=== PATIENT | female | born 1975 | race Caucasian/White ===

== ENCOUNTER 2017-12-24 21:19 | Observation (INO) | payer OTHER ==
[~2017-12-24] VITALS: Ht 175.3 cm; Wt 119.3 kg
[~2017-12-24 21:19] MED LIST: ACETAMINOPHEN-1 EAC1 PO; AMITRIPTYLINE H25 M2 PO; BELSOMRA20 MG PO; BRINTELLIX20 MG PO; BUSPIRONE HCL5 MG PO; CIPRO500 MG PO; CITRATE OF MAG296 ML PO; CLONAZEPAM 1 MG1 M1 PO; COLACE100 MG PO; FLAGYL 250 MG250 MG PO; GAVISCON EXTRA355 ML PO; HYDROCODONE-AP1 EAC6 PO; IBUPROFEN 800800 M1 PO; LATUDA80 MG PO; LUNESTA3 MG PO; METOPROLOL TART25 MG PO; NAPROXEN375 MG PO; NORCO 5-325 TA1 EAC1 PO; NORCO 5-325 TA1 EACH PO; ONDANSETRON HCL4 M2 PO; PREDNISONE 20 M20 M1 PO; PRILOSEC40 MG PO; PROVIGIL 200 M200 M1 PO; TESSALON PERLE100 MG PO; TOPROL XL25 MG PO; TRAZODONE HCL100 MG PO; VALIUM5 MG PO; XANAX 0.25 MG0.25 MG PO; ZOFRAN ODT4 MG PO; ZOFRAN4 MG PO
[2017-12-24 21:21] VITALS: BP 141/95
[2017-12-24 21:46] LABS: ABSOLUTE BASOPHILS 0.1 thou/uL (0.0-0.2); ABSOLUTE EOSINOPHILS 0.2 thou/uL (0.0-0.7); ABSOLUTE LYMPHOCYTES 2.6 thou/uL (0.8-5.3); ABSOLUTE MONOCYTES 0.9 thou/uL (0.0-1.2); ABSOLUTE NEUTROPHILS 4.9 thou/uL (1.6-8.1); BASOPHILS 0.7 %; EOSINOPHILS 2.5 %; HEMATOCRIT 39.9 % (37.0-47.0); HEMOGLOBIN 13.8 gm/dL (12.0-15.0); LYMPHOCYTES 29.8 %; MCH 34.5 pg (26.0-34.0); MCHC 34.7 g/dL (28.0-37.0); MCV 99.4 fL (80.0-100.0); MONOCYTES 9.9 %; MPV 7.9 fl. (7.2-11.1); NUCLEATED RBCS 0 /100WBC; PLATELET COUNT* 406 thou/uL (150-400); POLYS 57.1 %; RBC 4.01 mil/uL (4.20-5.00); RDW-CV 13.2 % (10.5-14.5); WBC 8.6 thou/uL (4.0-11.0)
[2017-12-24 22:01] LABS: APTT 24.1 Seconds (25.0-31.3); INR 1.1; PROTIME 10.5 Seconds (9.20-11.50)
[2017-12-24 22:39] LABS: POTASSIUM 3.8 mmol/L (3.5-5.1)
[2017-12-24 22:40] LABS: CREATININE 0.9 mg/dL (0.6-1.3)
[2017-12-24 22:41] LABS: CALCIUM 8.1 mg/dL (8.5-10.1); TOTAL BILIRUBIN 0.3 mg/dL (<0.1-1.0)
[2017-12-24 22:42] LABS: ALBUMIN 3.3 g/dL (3.4-5.0); TOTAL PROTEIN 6.3 g/dL (6.4-8.2)
--- NOTE | 2017-12-24 22:45 | NUR ---
CODE STROKE DISCONTINUED PER DR MCCONNELL
[2017-12-24 22:58] LABS: URINE BILIRUBIN NEGATIVE (Negative); URINE BLOOD NEGATIVE (Negative); URINE CLARITY CLEAR; URINE COLOR YELLOW; URINE GLUCOSE-RANDOM NEGATIVE (Negative); URINE KETONES NEGATIVE (Negative); URINE LEUKOCYTES-REFLEX NEGATIVE (Negative); URINE NITRITE-REFLEX NEGATIVE (Negative); URINE PROTEIN NEGATIVE (Negative); URINE SPECIFIC GRAVITY <= 1.005 (1.005-1.030); URINE UROBILINOGEN 0.2 E.U./dl (0.2-1.0)
[2017-12-24 23:07] LABS: AMP/METHAMP Negative (Negative); BARBITURATES Negative (Negative); BENZODIAZEPINES Negative (Negative); COCAINE Negative (Negative); METHADONE Negative (Negative); OPIATES Negative (Negative); PCP Negative (Negative); THC Negative (Negative)
[2017-12-25] VITALS (7 sets, daily range): BP systolic 102–133; BP diastolic 57–88
[2017-12-25] MEDS ORDERED: CLONAZEPAM 1 MG1 M1 PO (01:26)
[2017-12-25] MEDS ORDERED: NEURONTIN 300300 M1 PO (01:38)
--- NOTE | 2017-12-25 08:22 | NUR ---
PATIENT TO UNIT FROM ER AT 0110, ADMISSION COMPLETED CHARTED. PATIENT ALERT/ORIENTED X4, SITTING UP IN BED. PLACED ON TELE, SR. ON ROOM AIR, NO SOB NOTED, SATS 97%, O2 PRN FOR CHEST PAIN. SL INTACT TO RIGHT WRIST AND RIGHT AC, FLUSHES WELL. UP WITH ASSIST. DENIES NEEDS. STATES HAVING PAIN TO CHEST. EKG DONE, NITRO X1 GIVEN WITH NO RELIEF NOTED. DR. MEJIA NOTIFIED, ORDERS RECEIVED AND NOTED. [facility] CHARTED. SWALLOW SCREEN COMPLETED. HS SNACK GIVEN. SCD'S PLACED ON. NPO AFTER MIDNIGHT. BED ALARM ON. FALL PRECAUTIONS IN PLACE. HOURLY ROUNDING OBSERVED. CALL LIGHT WITHIN REACH, ENCOURAGED TO CALL FOR NEEDS.
--- NOTE | 2017-12-25 10:40 | NUR ---
assumed pt care at 0730, full assesment done as charted. pt a/o x4, c/o chest pressure at 3/10. VSS, sr on the monitor. Consults for neuro and cardiology placed, pt able to eat breakfast. up ad gina in room. fall precatuions in place. call light used approprialty. will continue with plan of care
--- NOTE | 2017-12-25 11:03 | EKG ---
[place] [address] ELECTROCARDIOGRAM REPORT Name: TATA MESSER Room: [address] M.R.#: [id number] Admission: 12/24/17 Attend Phys: Rey Soto MD Discharge: Date of : 75 Report #: [id number] THIS REPORT FOR: //name// [facility] ED Test Date: 2017-12-24 Test Time: 22:19:40 Pat Name: TATA MESSER Department: Room: [facility] Gender: F Implementation Project Coordinator: PHU Cross : 1975 Requested By: Jazlyn Rossi Order Number: [id number] MD: Praful Lai Measurements Intervals [place] Rate: 88 P: 68 KS: 154 QRS: 40 QRSD: 93 T: 26 QT: 396 QTc: 480 Interpretive Statements Sinus rhythm nonspecific st changes Probable left atrial enlargement Low voltage, precordial leads Compared to ECG 10/02/2017 16:25:08 no change Electronically Signed On 12-25-2017 11:02:54 SODA ROOM OPERATOR by Praful Lai [email or web address] <ELECTRONICALLY SIGNED> By: Praful Lai MD, [facility] 12/25/17 1102 2219 2219 Praful Lai MD, [facility] /EPI
--- NOTE | 2017-12-25 11:03 | EKG ---
[place] [address] ELECTROCARDIOGRAM REPORT Name: TATA MESSER Room: [address] M.R.#: [id number] Admission: 12/24/17 Attend Phys: Rey Soto MD Discharge: Date of : 75 Report #: [id number] THIS REPORT FOR: //name// [facility] ED Test Date: 2017-12-24 Test Time: 23:21:54 Pat Name: TATA MESSER Department: Room: [facility] Gender: F Machine Guide Base Winder: PHU Cross : 1975 Requested By: Jazlyn Rossi Order Number: [id number] MD: Praful Lai Measurements Intervals [place] Rate: 89 P: 56 GA: 157 QRS: 27 QRSD: 85 T: 15 QT: 373 QTc: 454 Interpretive Statements Sinus rhythm Probable left atrial enlargement Consider anterior infarct Electronically Signed On 12-25-2017 11:03:41 PAYROLL OFFICER by Praful Lai [email or web address] <ELECTRONICALLY SIGNED> By: Praful Lai MD, [facility] 12/25/17 1103 2321 2321 Praful Lai MD, [facility] /EPI
--- NOTE | 2017-12-25 11:05 | EKG ---
[place] [address] ELECTROCARDIOGRAM REPORT Name: TATA MESSER Room: [address] M.R.#: [id number] Admission: 12/24/17 Attend Phys: Rey Soto MD Discharge: Date of : 75 Report #: [id number] THIS REPORT FOR: //name// [facility] Test Date: 2017-12-25 Test Time: 02:10:21 Pat Name: TATA MESSER Department: Room: [address] Gender: F Wheat Farmer: FOUZIA : 1975 Requested By: Rey Soto Order Number: [id number] MD: Praful Lai Measurements Intervals [place] Rate: 91 P: 60 MA: 150 QRS: 40 QRSD: 91 T: 34 QT: 380 QTc: 468 Interpretive Statements Sinus rhythm Low voltage, precordial leads Borderline T abnormalities, anterior leads Electronically Signed On 12-25-2017 11:04:50 VALUE ENGINEER by Praful Lai [email or web address] <ELECTRONICALLY SIGNED> By: Praful Lai MD, [facility] 12/25/17 1104 0210 0210 Praful Lai MD, [facility] /EPI
[2017-12-25] MEDS ORDERED: LINZESS72 MCG PO (12:57)
--- NOTE | 2017-12-25 23:00 | NUR ---
ASSESSMENT AND VITALS COMPLETED CHARTED, VSS. CHICKEN STUFFER IN PLACE TRACING SR. PATIENT A&OX4, HOWEVER, HAS EPISODES OF CONFUSION. PATIENT EASILY REORIENTED. PATIENT ON 2L O2 NC PRN FOR CHEST PAIN. O2 SATS 97%, NO SIGNS OF DISTRESS. PAIN RELIEVED WITH PRN MEDICATION, REFER TO EMAR. FALL PRECAUTIONS IN PLACE. CALL LIGHT WITHIN REACH.
[2017-12-26] VITALS: BP 109/80
[2017-12-26 02:02] LABS: POC CA IONIZED 4.7 mg/dL (4.5-5.3); POC CREATININE 0.9 mg/dL (0.6-1.3); POC HEMOGLOBIN 13.9 g/dL (12.0-17.0); POC POTASSIUM 4.6 mmol/L (3.5-4.9)
[2017-12-26 04:27] VITALS: BP 121/73
--- NOTE | 2017-12-26 04:52 | NUR ---
PATIENT HAS C/O PAIN THAT HAS MOVED TO HER RIGHT SHOULDER/CHEST. STATES THAT SHE FEELS "LIKE SHE HAS A PE." LABS REVIEWED AND ELEVATED D-DIMER NOTED ON ADMISSION WITH NO CTA. DR. HASKINS NOTIFIED. NO NEW ORDERS RECEIVED AT THIS TIME. PATIENT AGREES TO TRY A HEATING PAD FOR PAIN RELIEF. HOURLY ROUNDING OBSERVED. CALL LIGHT WITHIN REACH
[2017-12-26 08:00] VITALS: BP 148/88
[2017-12-26 11:08] LABS: GLYCOHEMOGLOBIN (HGB A1C) 5.3 % (4.8-5.6)
[2017-12-26 11:59] VITALS: BP 124/85
--- NOTE | 2017-12-26 14:14 | NUR ---
ASSUMED PT CARE AT 0730, FULL ASSESMENT DONE CHARTED. PT A/O X4, IS DROWSY AT TIMES. PT C/O "CHEST WALL PAIN" THAT DOES NOT RADIATE AND "HURTS WHEN I BREATH". PTS VSS, SR/BBB, UP AD JUAN JOSE, REQUESTS PAIN MEDS FREQUENTLY. ASKING IF SHE CAN HAVE A CT SCAN TO CHECK FOR PE'S, DR MUNOZ ORDERED TEST FOR PT AND IF NO PE PT CAN DC TODAY. PT AWARE OF THE PLAN AND OK WITH IT. WILL CONTINUE WITH PLAN OF CARE
[2017-12-26] MEDS ORDERED: PERCOCET PO (14:58)
[2017-12-26 15:50] VITALS: BP 124/85
--- NOTE | 2017-12-26 17:17 | CON ---
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 The patient has no previous history of heart disease. I actually saw her 2 years ago in 03/2016 when she complained of chest pain. She apparently had a heart catheterization at [place] about 8 years ago that showed no significant coronary artery disease. She had a repeat heart catheterization in [facility] 3 years ago and again it showed no significant coronary artery disease. She apparently had an abnormal tilt table test in the past. 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 She had a remote history of seizures, but has not been on medications for about 10 years. She notes she went to work 2 nights ago. Yesterday, she slept during the day. Yesterday afternoon, she woke and she felt somewhat confused and fatigued. She went to work last night. After she was at work about 11:00 last night, when she felt some pressure in her chest, tended to come and go. She felt somewhat short of breath. She felt her heart fluttering. She went to the Emergency Room and she was admitted. She denied the pain radiating down her arms. It was not related to food. She had no belching or blood in her stool, fever or cough. She has had no syncope. PAST MEDICAL HISTORY: Significant for hysterectomy, cholecystectomy, appendectomy, gastroparesis, peptic ulcer in the past, hypertension, diabetes and hyperlipidemia. MEDICATIONS: Consists of Trintellix, Provigil, Elavil and Lunesta. ALLERGIES: SHE HAS INTOLERANCE TO MORPHINE AND ERYTHROMYCIN. FAMILY HISTORY: Grandfather had a heart attack. SOCIAL HISTORY: . She and her and children live in [place]. Smokes half pack of cigarettes a day. No alcohol abuse. REVIEW OF SYSTEMS: She apparently had a recent EGD that showed a hiatal hernia. She has had a fatty liver. No stroke and no asthma. No GI bleeding. No kidney disease. No cancer. 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 [place] [address] CONSULTATION Name: TATA MESSER Ashely Room: [address] Coni Goodman#: [id number] Admission: 12/24/17 Attend Phys: Rey Soto MD Discharge: 12/26/17 Date of : 75 Report #: [id number] VITAL SIGNS: Blood pressure 110/70, pulse is 80 and she is afebrile. HEENT: She is anicteric. Conjunctivae pink: Mucous membranes moist. NECK: Veins do not appear distended. No carotid bruits. Neck is supple. CHEST: Clear to auscultation. CARDIAC: Regular rate and rhythm. ABDOMEN: Soft and nontender. EXTREMITIES: Had no edema. Dorsalis pedis pulse 2+ bilaterally. SKIN: Warm and dry. NEUROLOGIC: Nonfocal. LYMPH: No adenopathy. MUSCULOSKELETAL: No joint effusion. LABORATORY DATA: ECG on admission showed sinus rhythm and nonspecific ST-segment changes. Her workup so far, she had sodium 137 and creatinine 0.9. Liver function studies were normal. Troponins all 0.06. White blood cell count 8.6 and hemoglobin 13.8. She had x-rays last night that included CT scan of the head using with and without contrast showed no significant stroke. A CT angiogram showed no large branch occlusion or aneurysm. Her chest x-ray showed no acute abnormality. MRI of the brain is pending. IMPRESSION AND RECOMMENDATIONS: 1. Chest pain. Atypical for angina. No evidence of acute myocardial infarction. Two previous heart catheterizations in the past. Recommend no further cardiac workup at this time. 2. History of seizures. The patient is being seen by Neurology. 3. Tobacco abuse. I recommended that she attempt to stop smoking. 4. History of hiatal hernia. <ELECTRONICALLY SIGNED> By: Praful Lai MD, [facility] 12/26/17 1717 1302 0012Daviadrianne Lai MD, FAC /nt
--- NOTE | 2017-12-27 19:06 | CON ---
[address] [address] CONSULTATION Name: TATA MESSER Room: [address] Coni Goodman#: [id number] Admission: 12/24/17 Attend Phys: Rey Soto MD Discharge: 12/26/17 Date of : 75 Report #: [id number] THIS REPORT FOR: //name// CC: LUCY physician/PCP Rey Soto DATE OF SERVICE: 12/26/2017 HISTORY OF PRESENT ILLNESS: This is a 42-year-old female patient who was evaluated by me today again. She is doing better. She indicates she still has some fogginess, but overall she has improved some, but has not come back to her baseline. She did call her neurologist, Dr. Sofia yesterday, but has not made an appointment with her yet. She is waiting for her call back. She indicates that she takes clonazepam and she takes gabapentin 300 mg p.o. t.i.d. She has idiopathic hypersomnia and she takes Provigil. She takes clonazepam for anxiety. PHYSICAL EXAMINATION: Indicate she was alert, responsive, able to follow simple and complex command. She was concerned with the pulmonary embolus, but CT angiogram came out to be negative. She moves all 4 extremities. There is no meningeal sign. Her blood pressure is 124/85, respirations 18, pulse is 119, temperature is 97.9. IMPRESSION: I do not think there is any neurological etiology for the patient's symptoms. It does not look like what she has was any epileptic seizure. I discussed with her the limitation of our hospital and told her that she needs to go to some higher level of care. She can follow up with Dr. Sofia and they do have monitoring equipment and she gets an EEG done. I asked her to get an appointment with Dr. Sofia as soon as she can. She should not drive for the time being, but then talk to Dr. Sofia about when she can drive. We had talked about transferring to the other facility, but after talking to her, she will like to follow up as an outpatient and she is going to make that appointment as soon as possible, hopefully this week and further management will be deferred to her neurologist. We will leave her on gabapentin and clonazepam. Both of them have reasonably good antiepileptic effect, but it is not certain that the patient's episodes were epileptic seizure and therefore further workup need to be done. <ELECTRONICALLY SIGNED> By: Maulik Forbes MD 12/27/17 1906 1947 [id number] Forbes MD /nt
--- NOTE | 2017-12-27 19:06 | EEG ---
[address] [address] EEG STUDY REPORT Name: TATA MESSER Room: [address] Coni MGarret#: [id number] Admission: 12/24/17 Attend Phys: Rey Soto MD Discharge: 12/26/17 Date of : 75 Report #: [id number] THIS REPORT FOR: //name// CC: [facility] physician/PCP Rey Soto DATE OF SERVICE: 12/25/2017 DESCRIPTION: This patient was evaluated by me for altered mental status. EEG was done by placing the electrodes by standard 10-20 system of electrode placement. Both referential and sequential montages were used for recording. Background activity in this patient's EEG is about 11 Hz and 40 microvolts. The patient became drowsy that is associated with bilateral slowing and vertex sharp waves. Photic stimulation is unremarkable. Throughout the record, no active epileptiform activity was noticed. IMPRESSION: This patient's EEG is within normal limits. Thank you very much for this referral. <ELECTRONICALLY SIGNED> By: Maulik Forbes MD 12/27/17 1906 1557 1717Maulik Forbes MD /nt
--- NOTE | 2017-12-27 19:06 | CON ---
[address] [address] CONSULTATION Name: TATA MESSER Room: [address] Coni Goodman#: [id number] Admission: 12/24/17 Attend Phys: Rey Soto MD Discharge: 12/26/17 Date of : 75 Report #: [id number] THIS REPORT FOR: //name// CC: LUCY physician/PCP Rey Soto DATE OF SERVICE: 12/25/2017 HISTORY OF PRESENT ILLNESS: A 42-year-old female patient who was evaluated by me because she had episode of fogginess and her mentation was very foggy. Even now, it has not returned back to its baseline. She could not write during this episode either. She was diagnosed with partial complex seizures long time ago. She used to have some numbness on the left side. She initially saw Dr. Alvarado and subsequently saw Dr. Sofia. She has been tried on multiple medications but after evaluation by Dr. Sofia, it was determined by her that the patient has nonepileptic seizures and her anticonvulsant was discontinued. Presently, she is not on any anticonvulsant. She does not believe she is under any unusual stress and she does not believe a stress is related to her symptoms. REVIEW OF SYSTEMS: Positive for supraventricular tachycardia. She also had gastroparesis, some chest pain and even now she has some chest heaviness. She has headache in the past. It is not clear if they were migraine headache or not. This was her relevant 14-point review of system. She does have some back pain. She had hysterectomies in the past. History indicated in the chart that she has a history of depression, but she does not believe that she has significant anxiety. PAST MEDICAL HISTORY: Positive for a history of partial complex seizure. FAMILY HISTORY: Negative for congenital epilepsies. SOCIAL HISTORY: Indicated that she does not drink any alcohol. PHYSICAL EXAMINATION: NEUROLOGICAL: Indicate she is alert, responsive, able to follow simple and complex command. Her speech, concentration looks unremarkable, but she does not feel she is back to her baseline yet. She had a cranial nerve examination, 2-12 looks unremarkable. She has a good strength, sensation and reflexes in all 4 extremities. There is no cerebellar sign or papilledema. There is no meningeal sign. NECK: There is no carotid bruit. CARDIAC: Examinations appear unremarkable. Lungs: No respiratory difficulty or rhonchi. VITAL SIGNS: Blood pressure is 109/74, respirations 18, pulse is 86 and temperature is 98.5. [place] [address] CONSULTATION Name: TATA MESSER Room: [address]#: [id number] Admission: 12/24/17 Attend Phys: Rey Soto MD Discharge: 12/26/17 Date of : 75 Report #: [id number] LABORATORY DATA: White count is 4.01. IMPRESSION: I discussed with the patient that the episode does not look like partial complex seizure, but partial complex seizures are difficult to exclude because electroencephalogram is typically normal in this patient and we do not have any more facility like prolonged electroencephalograms here. I suggested that we go ahead and do an MRI of the brain and electroencephalogram. If that is negative, I asked her to make a call to her neurologist, Dr. Sofia and I believe Dr. Sofia specializes in epilepsy and she can see and give some further recommendation to her. She may like to do some more testing on her too before restarting her on anticonvulsant till the workup shows something. RECOMMENDATIONS: We will go ahead and set up the MRI and an EEG and she was going to call Dr. Sofia to get her suggestion and see if she can get into her office pretty soon and I also may give her a call time. Thank you very much for this referral. <ELECTRONICALLY SIGNED> By: Maulik Forbes MD 12/27/17 1906 1533 2310Maulik Forbes MD /nt
== END 2017-12-26 16:08 | disposition home or self-care (01) ==
LOC: M.ERS 21:19 → M.TBA-ER 23:19 → M.2W 23:19
PROVIDERS: Personal Emergency Response Attendant; ADMIT Internal Medicine
DX: G40.209 Localization-related (focal) (partial) symptomatic epilepsy and epileptic syndromes with complex partial seizures, not intractable, without status epilepticus (principal); F41.9 Anxiety disorder, unspecified; I47.1 Supraventricular tachycardia; F42.9 Obsessive-compulsive disorder, unspecified; K20.9 Esophagitis, unspecified; G47.11 Idiopathic hypersomnia with long sleep time; R07.89 Other chest pain; F32.9 Major depressive disorder, single episode, unspecified; F17.210 Nicotine dependence, cigarettes, uncomplicated; Z90.710 Acquired absence of both cervix and uterus; Z87.442 Personal history of urinary calculi

== ENCOUNTER 2020-07-26 17:54 | Emergency (ER) | payer OTHER ==
[~2020-07-26] VITALS: Ht 170.2 cm; Wt 104.3 kg
[~2020-07-26 17:54] MED LIST changes: +LINZESS72 MCG PO; +NEURONTIN 300300 M1 PO; +PERCOCET PO
[2020-07-26] MEDS ORDERED: PROZAC10 M1 PO (18:16)
[2020-07-26 18:24] LABS: URINE BILIRUBIN NEGATIVE (Negative); URINE BLOOD NEGATIVE (Negative); URINE CLARITY CLEAR; URINE COLOR YELLOW; URINE GLUCOSE-RANDOM NEGATIVE (Negative); URINE KETONES NEGATIVE (Negative); URINE LEUKOCYTES-REFLEX NEGATIVE (Negative); URINE NITRITE-REFLEX NEGATIVE (Negative); URINE PROTEIN NEGATIVE (Negative); URINE UROBILINOGEN 0.2 E.U./dl (0.2-1.0)
[2020-07-26 19:22] LABS: ABSOLUTE BASOPHILS 0.1 thou/uL (0.0-0.2); ABSOLUTE EOSINOPHILS 0.2 thou/uL (0.0-0.7); ABSOLUTE LYMPHOCYTES 2.6 thou/uL (0.8-5.3); ABSOLUTE MONOCYTES 0.7 thou/uL (0.0-1.2); ABSOLUTE NEUTROPHILS 4.4 thou/uL (1.6-8.1); BASOPHILS 0.6 %; EOSINOPHILS 1.9 %; HEMATOCRIT 38.6 % (37.0-47.0); HEMOGLOBIN 13.5 gm/dL (12.0-15.0); LYMPHOCYTES 33.2 %; MCH 34.4 pg (26.0-34.0); MCHC 34.9 g/dL (28.0-37.0); MCV 98.5 fL (80.0-100.0); MONOCYTES 8.9 %; MPV 7.5 fl. (7.2-11.1); NUCLEATED RBCS 0 /100WBC; PLATELET COUNT* 273 thou/uL (150-400); POLYS 55.4 %; RBC 3.92 mil/uL (4.20-5.00); RDW-CV 13.2 % (10.5-14.5)
[2020-07-26 19:31] LABS: CALCIUM 8.1 mg/dL (8.5-10.1); POTASSIUM 3.5 mmol/L (3.5-5.1)
[2020-07-26 19:35] LABS: ALBUMIN 3.8 g/dL (3.4-5.0); TOTAL BILIRUBIN 0.4 mg/dL (<0.1-1.0); TOTAL PROTEIN 7.3 g/dL (6.4-8.2)
[2020-07-26] MEDS ORDERED: PERCOCET 5-3251 EACH PO (20:14)
[2020-07-26] MEDS ORDERED: ZOFRAN ODT4 MG PO (20:14)
[2020-07-26 20:31] VITALS: BP 132/61
== END 2020-07-26 20:36 | disposition home or self-care (01) ==
LOC: M.ERS 17:54
PROVIDERS: Family Medicine
DX: R10.31 Right lower quadrant pain (principal); R11.2 Nausea with vomiting, unspecified; K31.84 Gastroparesis; Z88.6 Allergy status to analgesic agent; Z88.5 Allergy status to narcotic agent; Z88.1 Allergy status to other antibiotic agents; Z90.49 Acquired absence of other specified parts of digestive tract; Z98.890 Other specified postprocedural states; Z90.710 Acquired absence of both cervix and uterus; Z87.442 Personal history of urinary calculi

== ENCOUNTER 2021-09-18 16:58 | Emergency (ER) | payer OTHER ==
[~2021-09-18] VITALS: Ht 175.3 cm; Wt 108.9 kg
[~2021-09-18 16:58] MED LIST changes: +PERCOCET 5-3251 EACH PO; +PROZAC10 M1 PO
[2021-09-18 17:25] VITALS: BP 160/81
[2021-09-18] MEDS ORDERED: AMBIEN 10 MG TA10 MG PO (17:36)
[2021-09-18] MEDS ORDERED: EFFEXOR XR150 MG PO (17:36)
[2021-09-18] MEDS ORDERED: PROGESTERONE200 MG PO (17:37)
[2021-09-18] MEDS ORDERED: HYDROCODON-ACE1 EAC7 PO ×2 (17:50→18:02)
[2021-09-18] MEDS ORDERED: PREDNISONE 20 M20 M1 PO (18:04)
== END 2021-09-18 18:10 | disposition home or self-care (01) ==
LOC: M.ERS 16:58
DX: M54.50 Low back pain, unspecified (principal); F32.9 Major depressive disorder, single episode, unspecified; F17.210 Nicotine dependence, cigarettes, uncomplicated; Z90.49 Acquired absence of other specified parts of digestive tract; Z90.710 Acquired absence of both cervix and uterus; Z79.899 Other long term (current) drug therapy; Z88.5 Allergy status to narcotic agent; Z90.89 Acquired absence of other organs; Z88.1 Allergy status to other antibiotic agents